=== PATIENT | male | born 1995 | race African-American/Black ===

== ENCOUNTER 2019-03-19 23:29 | Emergency (ER) | payer MEDICAID | END 2019-03-20 01:42 | disposition left against medical advice (07) | LOC: ER 23:29 | DX: Z53.21 Procedure and treatment not carried out due to patient leaving prior to being seen by health care provider (principal) ==

== ENCOUNTER → 2019-11-30 | Outpatient (CLI) | payer BC ==
[2019-11-30 13:42] LABS: CHLAM PCR NOT DETECTED (NOT DETECT)
== END ==
LOC: LAB 11:50
PROVIDERS: ATTEND Nurse Practitioner Family
DX: R30.0 Dysuria (principal)
CPT/HCPCS: 87491; 87591